=== PATIENT | male | born 1955 | race Caucasian/White ===

== ENCOUNTER 2021-08-18 10:33 | Inpatient (IN) ==
[2021-08-18 11:16] LABS: Basophils # 0.1 K/mcL (0.0-0.2); Basophils % 0.5 %; Eosinophils # 0.1 K/mcL (0.0-0.6); Eosinophils % 0.4 %; Hematocrit 36.4 % (37.5-50.1); Hemoglobin 12.1 g/dL (12.9-16.9); Immature Granulocytes % 0.7 % (0-4); Lymphocytes # 2.3 K/mcL (0.6-4.6); Lymphocytes % 17.6 %; Mean Corpuscular HGB Conc 33.2 g/dL (31.6-35.5); Mean Corpuscular Hemoglobin 29.7 pg (28.0-33.3); Mean Corpuscular Volume 89.2 fL (83.0-100.0); Mean Platelet Volume 10.2 fL (9.4-12.4); Monocytes # 1.1 K/mcL (0.0-1.3); Monocytes % 8.3 %; Neutrophils # 9.3 K/mcL (1.6-8.9); Platelet Count 492 K/mcL (140-400); Red Blood Count 4.08 M/mcL (4.19-5.50); Red Cell Distribution Width 14.2 % (11.5-14.5); Segmented Neutrophils % 72.5 %; White Blood Count 12.8 K/mcL (4.3-11.1)
[2021-08-18] MEDS ORDERED: Isovue-370 500 ML BOTTLE IVP ONE (11:38)
[2021-08-18 11:45] LABS: Alanine Aminotransferase 11 Units/L (7-52); Albumin 3.7 g/dL (3.5-5.7); Albumin/Globulin Ratio 0.9 (1.1-2.2); Alkaline Phosphatase 117 Units/L (34-104); Aspartate Amino Transferase 15 Units/L (13-39); BUN/Creatinine Ratio 35 (6-26); Bilirubin,Total 0.3 mg/dL (0.3-1.0); Blood Urea Nitrogen 12 mg/dL (8-23); Calcium 9.6 mg/dL (8.6-10.3); Carbon Dioxide 28 mEq/L (23-29); Chloride 94 mEq/L (98-107); Globulin 4.2 g/dL (2.4-3.5); Glucose 106 mg/dL (70-105); Osmolality,Calculated 274 (280-300); Potassium 3.3 mEq/L (3.5-5.1); Sodium 132 mEq/L (136-145); Total Protein 7.9 g/dL (6.4-8.9); eGFR For African Americans > 60 (> 60); eGFR For Non-African Americans > 60 (> 60)
[2021-08-18 11:48] LABS: C-Reactive Protein 62 mg/L (Less than 10)
[2021-08-18] MEDS ORDERED: *HR* FentaNYL (PF) 100 MCG/2 ML VIAL IVP ONE ×2 (12:24→14:06)
[2021-08-18] MEDS ORDERED: Piperacillin/Tazobactam 3.375 GM in Water for inj. (sterile) 20 ML IVP ONE (15:03)
[2021-08-18] MEDS ORDERED: Vancomycin 1,250 MG/262.5 ML IV.SOLN IVPB ONE ×2 (15:03→19:00)
[2021-08-18] MEDS ORDERED: 0.9 % Sodium Chloride 1,000 ML IVC SCH (15:45)
[2021-08-18] MEDS ORDERED: Ondansetron 4 MG/2 ML VIAL IVP PRN (15:58)
[2021-08-18] MEDS ORDERED: *HR* HYDROcodone/Acet 5/325 mg TABLET PO PRN (15:58)
[2021-08-18] MEDS ORDERED: Nicotine 2 MG GUM BC PRN (15:58)
[2021-08-18] MEDS ORDERED: Naloxone 0.4 MG/ML INJ IVP PRN (15:58)
[2021-08-18] MEDS ORDERED: Acetaminophen 325 MG TABLET PO PRN (15:58)
[2021-08-18] MEDS ORDERED: Melatonin 3 MG TABLET PO PRN (15:58)
[2021-08-18] MEDS: Nicotine 14 MG PATCH.TD24 TD SCH (17:10)
[2021-08-18] MEDS: *HR* OxyCODONE/APAP 10/325 TABLET PO PRN ×2 (17:20→21:03)
[2021-08-18] MEDS: *HR* FentaNYL PATCH 25 MCG PATCH TD SCH (17:21)
[2021-08-18] MEDS: Piperacillin/Tazobactam 3.375 GM in 0.9 % Sodium Chloride Mini Bag 100 ML IVPB SCH (21:04)
[2021-08-19] MEDS: *HR* OxyCODONE/APAP 10/325 TABLET PO PRN ×5 (00:42→22:41)
[2021-08-19 00:51] LABS: Hematocrit 33.4 % (37.5-50.1); Mean Corpuscular HGB Conc 32.9 g/dL (31.6-35.5); Mean Corpuscular Hemoglobin 29.8 pg (28.0-33.3); Mean Corpuscular Volume 90.5 fL (83.0-100.0); Platelet Count 412 K/mcL (140-400); Red Blood Count 3.69 M/mcL (4.19-5.50); Red Cell Distribution Width 14.2 % (11.5-14.5); White Blood Count 10.7 K/mcL (4.3-11.1)
[2021-08-19 00:55] LABS: INR 1.2; Prothrombin Time 12.9 Seconds (9.4-12.1)
[2021-08-19 01:09] LABS: BUN/Creatinine Ratio 32 (6-26); Blood Urea Nitrogen 10 mg/dL (8-23); Calcium 8.6 mg/dL (8.6-10.3); Carbon Dioxide 23 mEq/L (23-29); Chloride 101 mEq/L (98-107); Glucose 92 mg/dL (70-105); Magnesium 1.9 mg/dL (1.6-2.6); Osmolality,Calculated 273 (280-300); Potassium 4.1 mEq/L (3.5-5.1); Sodium 132 mEq/L (136-145); eGFR For African Americans > 60 (> 60); eGFR For Non-African Americans > 60 (> 60)
[2021-08-19] MEDS: Piperacillin/Tazobactam 3.375 GM in 0.9 % Sodium Chloride Mini Bag 100 ML IVPB SCH ×3 (04:45→20:12)
[2021-08-19] MEDS: Nicotine 14 MG PATCH.TD24 TD SCH (09:33)
[2021-08-19] MEDS ORDERED: *HR* OxyCODONE/APAP 5/325 TABLET PO ONE (09:56)
[2021-08-19] MEDS ORDERED: Isovue-370 500 ML BOTTLE IVP ONE (11:57)
[2021-08-19] MEDS ORDERED: 0.9 % Sodium Chloride 1,000 ML IVC SCH (12:15)
[2021-08-19] MEDS: *HR* OxyCODONE/APAP 7.5/325 TABLET PO PRN ×3 (12:21→20:16)
[2021-08-19] MEDS: *HR* Heparin 5,000 UNIT/ML VIAL SQ SCH (16:22)
[2021-08-19] MEDS ORDERED: *HR* LORazepam 2 MG/ML VIAL IVP ONE (23:49)
[2021-08-20] MEDS: *HR* OxyCODONE/APAP 7.5/325 TABLET PO PRN ×6 (00:21→21:09)
[2021-08-20 01:48] LABS: Hematocrit 32.2 % (37.5-50.1); Hemoglobin 10.7 g/dL (12.9-16.9); Mean Corpuscular HGB Conc 33.2 g/dL (31.6-35.5); Mean Corpuscular Volume 90.2 fL (83.0-100.0); Platelet Count 424 K/mcL (140-400); Red Blood Count 3.57 M/mcL (4.19-5.50); Red Cell Distribution Width 14.3 % (11.5-14.5); White Blood Count 10.7 K/mcL (4.3-11.1)
[2021-08-20 02:12] LABS: BUN/Creatinine Ratio 17 (6-26); Blood Urea Nitrogen 5 mg/dL (8-23); Calcium 8.5 mg/dL (8.6-10.3); Carbon Dioxide 22 mEq/L (23-29); Chloride 104 mEq/L (98-107); Glucose 91 mg/dL (70-105); Osmolality,Calculated 277 (280-300); Potassium 4.1 mEq/L (3.5-5.1); Sodium 135 mEq/L (136-145); eGFR For African Americans > 60 (> 60); eGFR For Non-African Americans > 60 (> 60)
[2021-08-20] MEDS: Piperacillin/Tazobactam 3.375 GM in 0.9 % Sodium Chloride Mini Bag 100 ML IVPB SCH ×3 (04:52→20:15)
[2021-08-20] MEDS: *HR* Heparin 5,000 UNIT/ML VIAL SQ SCH ×2 (04:53→15:14)
[2021-08-20] MEDS: Nicotine 14 MG PATCH.TD24 TD SCH (08:58)
[2021-08-21] MEDS: *HR* OxyCODONE/APAP 10/325 TABLET PO PRN ×5 (00:05→22:31)
[2021-08-21] MEDS: *HR* OxyCODONE/APAP 7.5/325 TABLET PO PRN ×2 (01:11→05:12)
[2021-08-21 01:21] LABS: Hematocrit 35.5 % (37.5-50.1); Hemoglobin 11.4 g/dL (12.9-16.9); Mean Corpuscular HGB Conc 32.1 g/dL (31.6-35.5); Mean Corpuscular Hemoglobin 29.4 pg (28.0-33.3); Mean Corpuscular Volume 91.5 fL (83.0-100.0); Mean Platelet Volume 9.8 fL (9.4-12.4); Platelet Count 439 K/mcL (140-400); Red Blood Count 3.88 M/mcL (4.19-5.50); Red Cell Distribution Width 14.4 % (11.5-14.5); White Blood Count 11.7 K/mcL (4.3-11.1)
[2021-08-21 01:43] LABS: BUN/Creatinine Ratio 17 (6-26); Blood Urea Nitrogen 4 mg/dL (8-23); Calcium 8.9 mg/dL (8.6-10.3); Carbon Dioxide 20 mEq/L (23-29); Chloride 98 mEq/L (98-107); Glucose 82 mg/dL (70-105); Osmolality,Calculated 270 (280-300); Potassium 3.7 mEq/L (3.5-5.1); Sodium 132 mEq/L (136-145); eGFR For African Americans > 60 (> 60); eGFR For Non-African Americans > 60 (> 60)
[2021-08-21] MEDS: Piperacillin/Tazobactam 3.375 GM in 0.9 % Sodium Chloride Mini Bag 100 ML IVPB SCH ×3 (05:02→21:12)
[2021-08-21] MEDS: *HR* Heparin 5,000 UNIT/ML VIAL SQ SCH ×2 (05:03→17:26)
[2021-08-21] MEDS: Nicotine 14 MG PATCH.TD24 TD SCH (08:01)
[2021-08-21] MEDS: *HR* FentaNYL PATCH 25 MCG PATCH TD SCH (17:26)
[2021-08-22] MEDS: *HR* OxyCODONE/APAP 10/325 TABLET PO PRN ×5 (02:29→20:10)
[2021-08-22] MEDS: *HR* Heparin 5,000 UNIT/ML VIAL SQ SCH ×2 (04:42→19:46)
[2021-08-22] MEDS: Piperacillin/Tazobactam 3.375 GM in 0.9 % Sodium Chloride Mini Bag 100 ML IVPB SCH ×3 (04:42→20:15)
[2021-08-22 05:49] LABS: Hematocrit 34.4 % (37.5-50.1); Hemoglobin 11.4 g/dL (12.9-16.9); Mean Corpuscular HGB Conc 33.1 g/dL (31.6-35.5); Mean Corpuscular Hemoglobin 29.8 pg (28.0-33.3); Mean Corpuscular Volume 89.8 fL (83.0-100.0); Mean Platelet Volume 9.9 fL (9.4-12.4); Platelet Count 481 K/mcL (140-400); Red Blood Count 3.83 M/mcL (4.19-5.50); Red Cell Distribution Width 14.6 % (11.5-14.5); White Blood Count 9.7 K/mcL (4.3-11.1)
[2021-08-22 05:55] LABS: INR 1.1; Prothrombin Time 11.9 Seconds (9.4-12.1)
[2021-08-22 06:06] LABS: BUN/Creatinine Ratio 19 (6-26); Blood Urea Nitrogen 6 mg/dL (8-23); Calcium 8.9 mg/dL (8.6-10.3); Carbon Dioxide 20 mEq/L (23-29); Chloride 100 mEq/L (98-107); Glucose 86 mg/dL (70-105); Magnesium 1.9 mg/dL (1.6-2.6); Osmolality,Calculated 271 (280-300); Phosphorous 3.1 mg/dL (2.7-4.5); Potassium 3.1 mEq/L (3.5-5.1); Sodium 132 mEq/L (136-145); eGFR For African Americans > 60 (> 60); eGFR For Non-African Americans > 60 (> 60)
[2021-08-22 06:09] LABS: Albumin 3.2 g/dL (3.5-5.7); Albumin/Globulin Ratio 0.9 (1.1-2.2); Bilirubin,Direct 0.1 mg/dL (0.0-0.2); Bilirubin,Indirect 0.2 mg/dL (0.0-1.0); Bilirubin,Total 0.3 mg/dL (0.3-1.0); Globulin 3.5 g/dL (2.4-3.5); Total Protein 6.7 g/dL (6.4-8.9)
[2021-08-22] MEDS: Nicotine 14 MG PATCH.TD24 TD SCH (07:49)
[2021-08-22] MEDS: Potassium Chloride Elixir 20 MEQ/15 ML UDC PO SCH ×2 (09:05→10:33)
[2021-08-22] MEDS ORDERED: *HR* Rocuronium Bromide 50 MG/5 ML VIAL ONE (16:21)
[2021-08-22] MEDS ORDERED: *HR* Succinylcholine 200 MG/10 ML VIAL IVP ONE (16:21)
[2021-08-22] MEDS ORDERED: *HR* FentaNYL (PF) 100 MCG/2 ML VIAL ONE (16:21)
[2021-08-22] MEDS ORDERED: Lidocaine HCL 4 ML Topical Solution (Laryng-O-Jet Kit Sterile Pak) TP ONE (16:21)
[2021-08-22] MEDS ORDERED: Lidocaine -MPF 2% 5 ML VIAL ONE (16:21)
[2021-08-22] MEDS ORDERED: *HR* Propofol 200 MG/20 ML VIAL IVP ONE (16:21)
[2021-08-22] MEDS ORDERED: Albuterol 2.5 MG/3 ML NEBULIZER IH PRN (16:33)
[2021-08-22] MEDS ORDERED: *HR* FentaNYL (PF) 100 MCG/2 ML VIAL IVP PRN (16:33)
[2021-08-22] MEDS ORDERED: Ondansetron 4 MG/2 ML VIAL IVP PRN (16:33)
[2021-08-22] MEDS ORDERED: Naloxone 0.4 MG/ML INJ IVP PRN (16:33)
[2021-08-22] MEDS ORDERED: Nitroglycerin 0.4 MG TAB.SUBL SL PRN (16:33)
[2021-08-22] MEDS ORDERED: Ondansetron 4 MG/2 ML VIAL ONE (17:32)
[2021-08-22] MEDS ORDERED: ceFAZolin 1,000 MG, Sodium Chloride IRRigation 1,000 ML IR ONE (17:35)
[2021-08-22] MEDS ORDERED: Sugammadex Sodium 200 MG/2 ML VIAL IV ONE (18:12)
[2021-08-22] MEDS ORDERED: *HR* HYDROMORPHONE 2 MG/ML VIAL ONE (18:18)
[2021-08-22] MEDS: *HR* HYDROmorphone (PF) 1 MG/ML SYRINGE IVP PRN ×4 (18:40→19:00)
[2021-08-22] MEDS ORDERED: *HR* OxyCODONE Immed Rel 5 MG TABLET PO ONE (19:08)
[2021-08-23] MEDS: *HR* OxyCODONE/APAP 10/325 TABLET PO PRN ×6 (00:05→20:36)
[2021-08-23 04:31] LABS: Mean Corpuscular HGB Conc 32.7 g/dL (31.6-35.5); Mean Corpuscular Hemoglobin 29.7 pg (28.0-33.3); Mean Corpuscular Volume 90.9 fL (83.0-100.0); Mean Platelet Volume 9.6 fL (9.4-12.4); Platelet Count 442 K/mcL (140-400); Red Cell Distribution Width 14.7 % (11.5-14.5); White Blood Count 8.9 K/mcL (4.3-11.1)
[2021-08-23 04:33] LABS: Hemoglobin 9.8 g/dL (12.9-16.9)
[2021-08-23 05:00] LABS: BUN/Creatinine Ratio 25 (6-26); Blood Urea Nitrogen 6 mg/dL (8-23); Calcium 8.2 mg/dL (8.6-10.3); Carbon Dioxide 16 mEq/L (23-29); Chloride 102 mEq/L (98-107); Glucose 109 mg/dL (70-105); Magnesium 1.7 mg/dL (1.6-2.6); Osmolality,Calculated 274 (280-300); Potassium 4.1 mEq/L (3.5-5.1); Sodium 133 mEq/L (136-145); eGFR For African Americans > 60 (> 60); eGFR For Non-African Americans > 60 (> 60)
[2021-08-23] MEDS: Piperacillin/Tazobactam 3.375 GM in 0.9 % Sodium Chloride Mini Bag 100 ML IVPB SCH ×3 (05:15→20:37)
[2021-08-23] MEDS: *HR* Heparin 5,000 UNIT/ML VIAL SQ SCH ×2 (05:16→16:40)
[2021-08-23] MEDS ORDERED: Ondansetron 4 MG/2 ML VIAL IVP PRN (06:54)
[2021-08-23] MEDS ORDERED: Nitroglycerin 0.4 MG TAB.SUBL SL PRN (06:54)
[2021-08-23] MEDS ORDERED: ceFAZolin 1,000 MG, Sodium Chloride IRRigation 1,000 ML IR ONE (06:54)
[2021-08-23] MEDS ORDERED: Acetaminophen 325 MG TABLET PO PRN (06:54)
[2021-08-23] MEDS ORDERED: Melatonin 3 MG TABLET PO PRN (06:54)
[2021-08-23] MEDS ORDERED: Nicotine 2 MG GUM BC PRN (06:54)
[2021-08-23] MEDS ORDERED: Naloxone 0.4 MG/ML INJ IVP PRN ×2 (06:54)
[2021-08-23] MEDS: Nicotine 14 MG PATCH.TD24 TD SCH (08:28)
[2021-08-24] MEDS: *HR* OxyCODONE/APAP 10/325 TABLET PO PRN ×4 (00:30→12:51)
[2021-08-24] MEDS: Piperacillin/Tazobactam 3.375 GM in 0.9 % Sodium Chloride Mini Bag 100 ML IVPB SCH (04:28)
[2021-08-24] MEDS: *HR* Heparin 5,000 UNIT/ML VIAL SQ SCH (04:30)
[2021-08-24 08:11] VITALS: O2SAT 98
[2021-08-24] MEDS: Nicotine 14 MG PATCH.TD24 TD SCH (08:54)
[2021-08-24 12:37] VITALS: BP 119/71; PULSE 68; TEMP 98
[2021-08-24] MEDS ORDERED: *HR* FentaNYL PATCH 25 MCG PATCH TD SCH (17:15)
== END 2021-08-24 15:28 | disposition home health service (06) | DRG 240 ==
LOC: 2ANU 10:33 → EMEROOARM 10:33 → SUATTDRO 15:58 → 2ANU 16:03
PROVIDERS: ADMIT Internal Medicine; ATTEND Internal Medicine